=== PATIENT | female | born 1990 | race Two or more races ===

== ENCOUNTER 2024-05-29 10:18 | Outpatient (CLI) | payer OTHER | END 2024-05-29 10:20 | disposition home or self-care (01) | LOC: PRENATAL 10:18 | PROVIDERS: ATTEND Obstetrics & Gynecology Maternal & Fetal Medicine | DX: O36.80X0 Pregnancy with inconclusive fetal viability, not applicable or unspecified (principal); Z36.82 Encounter for antenatal screening for nuchal translucency; Z14.8 Genetic carrier of other disease; O09.529 Supervision of elderly multigravida, unspecified trimester; Z3A.13 13 weeks gestation of pregnancy ==

== ENCOUNTER 2024-06-07 08:22 | Emergency (ER) | payer OTHER ==
[~2024-06-07] VITALS: Ht 152.4 cm; Wt 65.3 kg
[2024-06-07] MEDS ORDERED: PROMETRIUM200 MG (08:33)
[2024-06-07] MEDS ORDERED: ACETAMINOPHEN 500 MG GEL..CAP PO ONE (09:00)
[2024-06-07 09:20] LABS: HEMATOCRIT 38.1 % (36.0-45.00); HEMOGLOBIN 13.2 g/dL (12.0-15.00); MEAN CELL VOLUME 83.4 fL (80.00-100.00); MEAN CORPUSCULAR HEMOGLOBIN 28.8 pg (27.00-32.0); MEAN CORPUSCULAR HGB CONC 34.6 g/dl (32.0-36.0); PLATELET COUNT 198 K/uL (150-450); RED BLOOD COUNT 4.57 M/uL (4.00-6.00)
[2024-06-07 09:25] LABS: PH,URINE 7.5 (5.0-8.0); URINE APPEARANCE Clear; URINE BILIRRUBIN Negative (NEGATIVE); URINE BLOOD Negative; URINE COLOR Yellow; URINE KETONE 15 (NEGATIVE); URINE LEUKOCYTE Negative; URINE NITRATE Negative; URINE PROTEIN Negative (NEGATIVE); URINE UROBILINOGEN 0.2 E.U./dl
[2024-06-07 09:29] LABS: URINE BACTERIA 369.1 uL (0.0-1933); URINE EPITHELIAL CELLS 4.1 uL (0.0-38.8); URINE RBC 7.3 uL (0.0-20.8); URINE WBC 2.1 uL (0.0-23.2)
[2024-06-07 09:40] LABS: INR 0.98; PARTIAL THROMBOPLASTIN TIME 29.1 SECONDS (22.0-34.0); PROTHROMBIN TIME 10.7 SECONDS (9.0-11.5)
[2024-06-07 10:19] LABS: ALBUMIN 3.5 gm/dL (3.4-5.0); BILIRUBIN TOTAL 0.58 mg/dL (0.3-1.2); CALCIUM 9.7 mg/dL (8.5-10.1); CREATININE SERUM 0.53 mg/dL (0.55-1.02); GFR 131.27; GLOBULINA 4.1 G/DL (2.4-3.5); POTASSIUM 3.95 mEq/L (3.5-5.1); TOTAL PROTEIN 7.6 gm/dL (6.4-8.2)
[2024-06-07 10:35] LABS: URINE GLUCOSE 100 MG/DL (NEGATIVE)
== END 2024-06-07 14:11 | disposition home or self-care (01) ==
LOC: ER 08:24
PROVIDERS: Emergency Medicine
DX: O26.892 Other specified pregnancy related conditions, second trimester (principal); Z3A.14 14 weeks gestation of pregnancy; R10.2 Pelvic and perineal pain; Z20.822 Contact with and (suspected) exposure to COVID-19

== ENCOUNTER → 2024-07-10 14:03 | Outpatient (CLI) | payer OTHER ==
[~2024-07-10 14:03] MED LIST: PROMETRIUM200 MG
== END | disposition home or self-care (01) ==
LOC: PRENATAL 14:03
PROVIDERS: ATTEND Obstetrics & Gynecology Maternal & Fetal Medicine
DX: O44.00 Complete placenta previa NOS or without hemorrhage, unspecified trimester (principal); O09.529 Supervision of elderly multigravida, unspecified trimester; O34.10 Maternal care for benign tumor of corpus uteri, unspecified trimester; Z3A.19 19 weeks gestation of pregnancy

== ENCOUNTER → 2024-10-09 14:37 | Outpatient (CLI) | payer OTHER | END | disposition home or self-care (01) | LOC: PRENATAL 14:37 | PROVIDERS: ATTEND Obstetrics & Gynecology Maternal & Fetal Medicine | DX: O26.849 Uterine size-date discrepancy, unspecified trimester (principal); O36.8199 Decreased fetal movements, unspecified trimester, other fetus; O09.529 Supervision of elderly multigravida, unspecified trimester; O34.10 Maternal care for benign tumor of corpus uteri, unspecified trimester; Z3A.32 32 weeks gestation of pregnancy ==

== ENCOUNTER 2024-11-06 12:14 | Inpatient (IN) | payer OTHER ==
[~2024-11-06] VITALS: Ht 152.4 cm; Wt 73.5 kg
[2024-11-06 12:34] VITALS: BP 120/80
[2024-11-06 13:19] LABS: URINE APPEARANCE Clear; URINE BILIRRUBIN Negative (NEGATIVE); URINE BLOOD Negative; URINE COLOR Yellow; URINE KETONE Negative (NEGATIVE); URINE LEUKOCYTE Negative; URINE NITRATE Negative; URINE PROTEIN Negative (NEGATIVE); URINE UROBILINOGEN 0.2 E.U./dl
[2024-11-06 13:22] LABS: URINE BACTERIA 190.6 uL (0.0-1933); URINE EPITHELIAL CELLS 13.7 uL (0.0-38.8); URINE RBC 2.7 uL (0.0-20.8); URINE WBC 2.5 uL (0.0-23.2)
[2024-11-06 13:23] LABS: URINE CAST 0.14 uL (0.0-1.40); URINE GLUCOSE 250 MG/DL (NEGATIVE)
[2024-11-06 13:24] VITALS: BP 120/80
[2024-11-06] MEDS ORDERED: PRENATAL + DHA1 EAC1 PO (13:42)
[2024-11-06 13:43] LABS: HEMATOCRIT 37.3 % (36.0-45.00); HEMOGLOBIN 12.5 g/dL (12.0-15.00); MEAN CELL VOLUME 86.3 fL (80.00-100.00); MEAN CORPUSCULAR HGB CONC 33.6 g/dl (32.0-36.0); PLATELET COUNT 193 K/uL (150-450); RED BLOOD COUNT 4.32 M/uL (4.00-6.00); RED CELL DISTRIBUTION WIDTH 15.2 % (11.5-14.5)
[2024-11-06] MEDS ORDERED: ADULT ASPIRIN81 MG PO (13:43)
[2024-11-06] MEDS ORDERED: SODIUM CHLORIDE 0.45 % 500 ML IV SCH (13:45)
[2024-11-06 13:54] LABS: INR 0.94; PARTIAL THROMBOPLASTIN TIME 27.4 SECONDS (22.0-34.0); PROTHROMBIN TIME 10.3 SECONDS (9.0-11.5)
[2024-11-06 14:26] LABS: ALBUMIN 3.1 gm/dL (3.4-5.0); BILIRUBIN TOTAL 0.33 mg/dL (0.3-1.2); CALCIUM 9.1 mg/dL (8.5-10.1); CREATININE SERUM 0.57 mg/dL (0.55-1.02); GFR 120.01; GLOBULINA 3.4 G/DL (2.4-3.5); POTASSIUM 4.35 mEq/L (3.5-5.1); TOTAL PROTEIN 6.5 gm/dL (6.4-8.2)
[2024-11-06 15:22] VITALS: BP 120/81
[2024-11-06 19:29] VITALS: BP 112/77
[2024-11-06 23:24] VITALS: BP 109/74
[2024-11-07 03:36] VITALS: BP 100/65
[2024-11-07 06:21] VITALS: BP 117/79; O2SAT 100
[2024-11-07 11:04] VITALS: BP 120/82; O2SAT 97
[2024-11-07] MEDS ORDERED: ACETAMINOPHEN 500 MG GEL..CAP PO PRN (11:15)
[2024-11-07 13:53] VITALS: BP 134/85
[2024-11-07 16:38] VITALS: BP 121/79
[2024-11-07 23:58] VITALS: BP 107/68
[2024-11-07] MEDS ORDERED: DIPHENHYDRAMINE HCL 50 MG/ML VIAL 1ML ONE (23:59)
[2024-11-08] MEDS ORDERED: DIPHENHYDRAMINE HCL 50 MG/ML VIAL 1ML IV STA (00:07)
[2024-11-08 08:41] VITALS: BP 104/71
[2024-11-08 16:24] VITALS: BP 119/77
== END 2024-11-08 16:30 | disposition home or self-care (01) | DRG 833 ==
LOC: OBS/DEL 12:14 → LDR 13:13 → OB/GYN 11-07 10:59
PROVIDERS: ADMIT Student in an Organized Health Care Education/Training Program; ATTEND Student in an Organized Health Care Education/Training Program
PROC: 4A1HXCZ Monitoring of Products of Conception, Cardiac Rate, External Approach (ICD-10-PCS; principal; 2024-11-06)
PROC: BY4FZZZ Ultrasonography of Third Trimester, Single Fetus (ICD-10-PCS; 2024-11-08)
DX: O41.03X0 Oligohydramnios, third trimester, not applicable or unspecified (principal); O26.843 Uterine size-date discrepancy, third trimester; O36.8130 Decreased fetal movements, third trimester, not applicable or unspecified; O34.10 Maternal care for benign tumor of corpus uteri, unspecified trimester; D25.9 Leiomyoma of uterus, unspecified; Z3A.36 36 weeks gestation of pregnancy

== ENCOUNTER 2024-11-25 09:57 | Inpatient (IN) | payer OTHER ==
[~2024-11-25] VITALS: Ht 152.4 cm; Wt 75.3 kg
[~2024-11-25 09:57] MED LIST changes: +ADULT ASPIRIN81 MG PO; +PRENATAL + DHA1 EAC1 PO
[2024-11-25 10:56] VITALS: BP 115/70
[2024-11-25 11:30] VITALS: BP 125/74
[2024-11-25] MEDS ORDERED: RINGERS SOLUTION,LACTATED 1,000 ML IV SCH (11:30)
[2024-11-25 11:50] LABS: HEMATOCRIT 36.4 % (36.0-45.00); HEMOGLOBIN 12.2 g/dL (12.0-15.00); MEAN CELL VOLUME 86.2 fL (80.00-100.00); MEAN CORPUSCULAR HEMOGLOBIN 28.9 pg (27.00-32.0); MEAN CORPUSCULAR HGB CONC 33.5 g/dl (32.0-36.0); PLATELET COUNT 175 K/uL (150-450); RED BLOOD COUNT 4.23 M/uL (4.00-6.00); RED CELL DISTRIBUTION WIDTH 14.6 % (11.5-14.5)
[2024-11-25 11:53] LABS: URINE APPEARANCE Clear; URINE BILIRRUBIN Negative (NEGATIVE); URINE BLOOD Negative; URINE COLOR Yellow; URINE KETONE Negative (NEGATIVE); URINE LEUKOCYTE Negative; URINE NITRATE Negative; URINE PROTEIN 30 (NEGATIVE); URINE UROBILINOGEN 0.2 E.U./dl
[2024-11-25 11:57] LABS: URINE BACTERIA 2622.7 uL (0.0-1933); URINE EPITHELIAL CELLS 26.1 uL (0.0-38.8); URINE RBC 9.5 uL (0.0-20.8)
[2024-11-25 12:08] LABS: INR < 0.93; PARTIAL THROMBOPLASTIN TIME 26.6 SECONDS (22.0-34.0)
[2024-11-25 12:41] LABS: URINE GLUCOSE >=1000 MG/DL (NEGATIVE)
[2024-11-25 12:42] LABS: URINE CRYSTALS FEW /HPF
[2024-11-25 12:45] LABS: ALBUMIN 2.9 gm/dL (3.4-5.0); BILIRUBIN TOTAL 0.3 mg/dL (0.3-1.2); CALCIUM 9.3 mg/dL (8.5-10.1); CREATININE SERUM 0.6 mg/dL (0.55-1.02); GFR 113.11; GLOBULINA 3.5 G/DL (2.4-3.5); POTASSIUM 4.16 mEq/L (3.5-5.1); TOTAL PROTEIN 6.4 gm/dL (6.4-8.2)
[2024-11-25] MEDS ORDERED: MISOPROSTOL 25 MCG/4 ML GEL.W.APPL VAG ONE ×2 (13:30→18:00)
[2024-11-25 15:32] VITALS: BP 123/77
[2024-11-25] MEDS ORDERED: MISOPROSTOL 25 MCG/4 ML GEL.W.APPL ONE (17:39)
[2024-11-25 19:14] VITALS: BP 127/85
[2024-11-25] MEDS ORDERED: MORPHINE SULFATE 4 MG/ML VIAL IV ONE (22:15)
[2024-11-25] MEDS ORDERED: MISOPROSTOL 25 MCG TABLET VAG ONE (22:15)
[2024-11-25 22:26] VITALS: BP 125/84
[2024-11-25 23:37] VITALS: BP 101/81
[2024-11-26] VITALS (9 sets, daily range): BP systolic 117–144; BP diastolic 63–78
[2024-11-26] MEDS ORDERED: MORPHINE SULFATE 4 MG/ML VIAL IV PRN (03:30)
[2024-11-26] MEDS ORDERED: OXYTOCIN 500 ML IV SCH (10:15)
[2024-11-26] MEDS ORDERED: CHLORHEXIDINE GLUCONATE 120 ML BOTTLE TOP ONE ×3 (14:26→18:30)
[2024-11-26] MEDS ORDERED: OXYTOCIN 20 UNITS/1000ML RL PIGGYBAG IV ONE (14:26)
[2024-11-26] MEDS ORDERED: ERYTHROMYCIN BASE OPHT 1GM EACH TUBE OP ONE ×2 (14:26→18:00)
[2024-11-26] MEDS ORDERED: LIDOCAINE HCL 1% 10ML VIAL ONE (14:27)
[2024-11-26] MEDS ORDERED: CITRIC ACID/SODIUM CITRATE 30 ML BLIST.PACK PO ONE ×2 (15:48→16:00)
[2024-11-26] MEDS ORDERED: LIDOCAINE HCL 1% 10ML VIAL PERCUT ONE (18:00)
[2024-11-26] MEDS ORDERED: OXYTOCIN 1,000 ML IV SCH ×2 (18:00→18:30)
[2024-11-26] MEDS ORDERED: ACETAMINOPHEN 500 MG GEL..CAP PO PRN (18:30)
[2024-11-27] VITALS: BP 107/63
[2024-11-27 06:51] LABS: HEMATOCRIT 28.6 % (36.0-45.00); HEMOGLOBIN 9.8 g/dL (12.0-15.00); MEAN CELL VOLUME 85.3 fL (80.00-100.00); MEAN CORPUSCULAR HEMOGLOBIN 29.3 pg (27.00-32.0); MEAN CORPUSCULAR HGB CONC 34.3 g/dl (32.0-36.0); PLATELET COUNT 155 K/uL (150-450); RED BLOOD COUNT 3.35 M/uL (4.00-6.00); RED CELL DISTRIBUTION WIDTH 14.8 % (11.5-14.5)
[2024-11-27 08:52] VITALS: BP 110/73
[2024-11-27] MEDS ORDERED: BENZOCAINE/MENTHOL 90 ML BOTTLE TOP SCH (09:00)
[2024-11-27] MEDS ORDERED: PNV,CALCIUM 72/IRON/FOLIC ACID 1 TAB TABLET PO SCH (09:00)
[2024-11-27 16:00] VITALS: BP 106/71
[2024-11-28 00:15] VITALS: BP 95/60
[2024-11-28] MEDS ORDERED: ANUSOL-HC25 MG RECTAL (07:34)
[2024-11-28] MEDS ORDERED: COLACE100 MG PO (07:35)
[2024-11-28] MEDS ORDERED: FUSION PLUS CA1 EACH PO (07:35)
[2024-11-28 08:14] VITALS: BP 117/81
== END 2024-11-28 17:56 | disposition home or self-care (01) | DRG 806 ==
LOC: LDR 09:57 → OB/GYN 11-26 17:51
PROVIDERS: ADMIT Obstetrics & Gynecology; ATTEND Obstetrics & Gynecology
PROC: 3E0P7VZ Introduction of Hormone into Female Reproductive, Via Natural or Artificial Opening (ICD-10-PCS; 2024-11-25)
PROC: 4A1HXCZ Monitoring of Products of Conception, Cardiac Rate, External Approach (ICD-10-PCS; 2024-11-25)
PROC: 10E0XZZ Delivery of Products of Conception, External Approach (ICD-10-PCS; principal; 2024-11-26)
PROC: 0HQ9XZZ Repair Perineum Skin, External Approach (ICD-10-PCS; 2024-11-26)
PROC: 3E033VJ Introduction of Other Hormone into Peripheral Vein, Percutaneous Approach (ICD-10-PCS; 2024-11-26)
DX: O70.0 First degree perineal laceration during delivery (principal); O41.03X0 Oligohydramnios, third trimester, not applicable or unspecified; Z37.0 Single live birth; Z3A.39 39 weeks gestation of pregnancy; Z20.822 Contact with and (suspected) exposure to COVID-19